=== PATIENT | female | born 1930 | race American Indian/Alaskan Native ===

== ENCOUNTER 2017-04-19 06:14 | Emergency (ER) | payer MEDICARE ==
[2017-04-19 07:17] LABS: INR 0.94 (0.87-1.13); Partial Thromboplastin Time < 20.0 Sec. (24.2-36.6)
[2017-04-19 07:25] LABS: Hematocrit 26.1 % (30.3-42.9); Hemoglobin 8.2 gm/dl (10.1-14.3); Mean Corpuscular HGB Conc 31 % (30-34); Mean Corpuscular Hemoglobin 22 pg (28-32); Mean Corpuscular Volume 71 fl (79-97); Platelet Count 193 K/mm3 (140-440); Red Blood Count 3.68 M/mm3 (3.65-5.03); White Blood Count 6.5 K/mm3 (4.5-11.0)
[2017-04-19 07:26] LABS: Eosinophils % (Auto) 4.3 % (0.0-4.3)
[2017-04-19 07:32] LABS: Anion Gap 10 mmol/L; BUN/Creatinine Ratio 22; Blood Urea Nitrogen 20 mg/dL (7-17); Calcium 9.1 mg/dL (8.4-10.2); Carbon Dioxide 27 mmol/L (22-30); Chloride 100.9 mmol/L (98-107); Glucose 99 mg/dL (65-100); Potassium 4.7 mmol/L (3.6-5.0); Sodium 133 mmol/L (137-145)
[2017-04-19 09:05] VITALS: BP 159/50
== END 2017-04-19 10:17 | disposition left against medical advice (07) ==
LOC: ED 06:14
DX: R00.0 Tachycardia, unspecified (principal); Z53.21 Procedure and treatment not carried out due to patient leaving prior to being seen by health care provider
CPT/HCPCS: 36415; 80048; 84484; 85025; 85610; 85730; 93005; 93010